=== PATIENT | female | born 1995 | race Caucasian/White ===

== ENCOUNTER 2018-11-04 17:31 | Emergency (ER) | payer MEDICAID, MEDICARE ==
[~2018-11-04] VITALS: Ht 165.1 cm; Wt 127.0 kg
[2018-11-04 20:33] VITALS: BP 135/76
== END 2018-11-04 20:34 | disposition home or self-care (01) ==
LOC: ER 17:31
DX: Z04.41 Encounter for examination and observation following alleged adult rape (principal); Z59.0 Homelessness
CPT/HCPCS: 99284

== ENCOUNTER 2020-11-10 09:49 | Emergency (ER) | payer MEDICARE ==
[~2020-11-10] VITALS: Ht 165.1 cm; Wt 127.0 kg
[2020-11-10 09:58] VITALS: BP 148/79
[2020-11-10] MEDS ORDERED: CYCL5TAB PO (11:26)
[2020-11-10] MEDS ORDERED: NAPR-681 PO (11:26)
== END 2020-11-10 11:59 | disposition home or self-care (01) ==
LOC: ER 09:49
DX: M43.6 Torticollis (principal); M54.2 Cervicalgia
CPT/HCPCS: 99282

== ENCOUNTER 2025-01-02 23:58 | Emergency (ER) | payer MEDICAID, MEDICARE ==
[~2025-01-02] VITALS: Ht 165.1 cm; Wt 141.0 kg
[~2025-01-02 23:58] MED LIST: CYCL5TAB3 PO; NAPR-681 PO
[2025-01-03 00:03] VITALS: BP 140/81; PULSE 85; RESP 18; TEMP 36.9; O2SAT 97
[2025-01-03] MEDS: SODIUM CHLORIDE 0.9% 1,000 ML IV ONE (00:15)
[2025-01-03 01:55] LABS: CREATININE 0.7 mg/dL (0.6-1.0)
[2025-01-03 01:56] LABS: UREA NITROGEN BLOOD 5 mg/dL (9-23)
== END 2025-01-03 02:56 | disposition home or self-care (01) ==
LOC: ER 23:58
DX: R20.2 Paresthesia of skin (principal); F12.90 Cannabis use, unspecified, uncomplicated; Z79.899 Other long term (current) drug therapy
CPT/HCPCS: 99284; 96360; 80048; 81025; 36415; 93005; J7030